=== PATIENT | female | born 1960 | race African-American/Black ===

== ENCOUNTER 2017-12-31 15:13 | Emergency (ER) | payer OTHER ==
[2017-12-31 15:17] VITALS: BP 122/82; PULSE 62; TEMP 98; BMI 16.9
[2017-12-31] MEDS ORDERED: SODIUM CHLORIDE 0.9% 500 ML INFUS.BAG IV ONE (16:26)
--- NOTE | 2017-12-31 16:35 | PDOC ---
History of Present Illness - General Chief Complaint: Seizure Stated Complaint: SEIZURE Time Seen by Provider: 12/31/17 16:01 History Source: Patient, Family Exam Limitations: No Limitations - History of Present Illness Initial Comments: 12/31/17 16:27 This is a 57 YOF with h/o seizure disorder on Keppra and Lamotrigine who p/w apparent seizure at 3 pm similar to her normal seizures, with apparent fall from bed, and now accompanied by a prolonged period of confusion since that time. Family notes that they heard a thud in her room, came to check on her three minutes later and found her laying on her back beside her bed with snoring respirations, and helped her up to her bed where she continued to sleep and snore for another several minutes before awakening and looking around, asking what had happened. She has been postictal for more than an hour at the time of my exam, which is longer than her normal time returning to baseline. The patient notes recent sore throat and cough, and just returned from a medically uneventful trip to [place] two days ago. She denies f/c/n/v/d/c, n/t/w , dizziness/lightheadedness, SOB, chest pain, abdominal pain, vision changes, headache, neck pain, or other symptoms. Her neurologist is Dr. James and her PCP is Dr. Bergman. Past History - Past Medical History Allergies/Adverse Reactions: Allergies Allergy/AdvReac Type Severity Reaction Status Date / Time Shellfish Allergy Intermediate Verified 12/31/17 15:17 Home Medications: Ambulatory Orders levETIRAcetam [Keppra -] 1,500 mg PO BID #0 tablet 10/01/11 Anemia: No Asthma: No Cancer: No Cardiac Disorders: No CVA: No COPD: No CHF: No Dementia: No Diabetes: No GI Disorders: No Disorders: No HTN: No Hypercholesterolemia: No Liver Disease: No Seizures: Yes Thyroid Disease: No - Surgical History Abdominal Surgery: No Appendectomy: No Cardiac Surgery: No Cholecystectomy: No Lung Surgery: No Neurologic Surgery: No Orthopedic Surgery: No - Suicide/Smoking/Psychosocial Hx Smoking History: Never smoked Have you smoked in the past 12 months: No Hx Alcohol Use: No Drug/Substance Use Hx: No Hx Substance Use Treatment: No Review of Systems - Review of Systems Able to Perform ROS?: Yes Constitutional: No: Chills, Fever, Unexplained wgt Loss HEENTM: No: Nose Congestion, Throat Pain Respiratory: No: Cough, Shortness of Breath Cardiac (ROS): No: Chest Pain, Palpitations ABD/GI: No: Constipated, Diarrhea, Nausea, Vomiting : No: Burning, Dysuria Musculoskeletal: No: Back Pain, Neck Pain Integumentary: No: Bruising, Rash Neurological: Yes: Seizure, Other (confusion). No: Headache, Numbness, Tingling , Weakness, Dizziness Endocrine: No: Unexplained Weight Gain, Unexplained Weight Loss *Physical Exam - Vital Signs Last Vital Signs Temp Pulse Resp BP Pulse Ox 98 F 62 18 122/82 99 12/31/17 15:14 12/31/17 15:14 12/31/17 15:14 12/31/17 15:14 12/31/17 15:14 - Physical Exam General Appearance: Yes: Nourished, Appropriately Dressed, Other (nontoxic and well appearing but a bit [id number], some speech latency, however a/ox4, appears comfortable). No: Apparent Distress HEENT: positive: EOMI, LUIZ, Normal Voice, Hearing Grossly Normal, Other (no scalp contusion, no cephalohematoma, no scalp laceration, no raccoon eyes, no barclay sign, no hemotympanum, no CSF rhinorrhea/otorrhea). negative: Scleral Icterus (R), Scleral Icterus (L), Nasal Congestion Neck: positive: Trachea midline, Supple. negative: Tender, Rigid Respiratory/Chest: positive: Lungs Clear, Normal Breath Sounds. negative: Respiratory Distress, Crackles, Rhonchi, Stridor, Wheezing Cardiovascular: positive: Regular Rhythm, Regular Rate, S1, S2. negative: Edema , JVD, Murmur Gastrointestinal/Abdominal: positive: Normal Bowel Sounds, Flat, Soft. negative : Tender, Organomegaly, Pulsatile Mass, Guarding Musculoskeletal: positive: Normal Inspection, Other (pelvis stable). negative: Decreased Range of Motion, Vertebral Tenderness Extremity: positive: Normal Capillary Refill, Normal Inspection, Normal Range of Motion. negative: Tender, Cyanosis Integumentary: positive: Normal Color, Dry, Warm. 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 negative: EOM Palsy, Facial Droop, Numbness, Sensory Deficit, Disoriented Heart Score/ECG Review #1 Sinus bradycardia, rate 53, normal axis and intervals, no ST-T changes ED Treatment Course - LABORATORY CBC & Chemistry Diagram: 12/31/17 17:35 12/31/17 17:35 - RADIOLOGY Radiology Studies Ordered: Category Date Time Status HEAD CT WITHOUT CONTRAST [CT] Stat CT Scan 12/31/17 16:22 Ordered CHEST PA & LAT [RAD] Stat Radiology 12/31/17 16:22 Ordered Medical Decision Making - Medical Decision Making Adult female Pt p/w apparent seizure. Initial Vital Signs Temp Pulse Resp BP Pulse Ox 98 F 62 18 122/82 99 12/31/17 15:14 12/31/17 15:14 12/31/17 15:14 12/31/17 15:14 12/31/17 15:14 Exam: As noted in Physical Exam section. DDX IBNLT: seizure (myoclonic, tonic-clonic/grand mal, atonic, absence/petit mal ) vs. syncope, status epilepticus (sz lasting 5-10 minutes, or repeated sz without regaining consciousness inbetween), VS abnormalities (e.g. fever), structural (e.g. epilepsy, CVA/TIA), infectious (e.g. UTI, PNA, meningitis), trauma, toxic-metabolic (e.g. medications, medication withdrawal, street drugs, street drug withdrawal, EtOH, EtOH withdrawal, electrolytes, thyroid), brain lesion (e.g. tumor), stroke, TTP (HUS with AMS, fever, poss seizure), idiopathic , psychiatric (e.g. pseudoseizure), eclampsia, etc. W/U ordered: CBCD CMP Mg Phos UA UCx Troponin Keppra and Lemotrigine levels, EKG CXR Head CT TX ordered: IVF EKG: Reviewed; results as noted in ECG Review section. CXR: Nothing acute Head CT: Nothing acute Laboratory Tests 12/31/17 12/31/17 12/31/17 17:35 17:35 17:35 WBC 12.4 H RBC 4.41 Hgb 11.2 Hct 34.7 MCV 78.6 L MCH 25.4 L MCHC 32.3 RDW 14.6 Plt Count 280 D MPV 8.3 D Absolute Neuts (auto) 10.6 H Neutrophils % 86.1 H D Lymphocytes % 8.2 D Monocytes % 4.4 Eosinophils % 0.7 D Basophils % 0.6 Nucleated RBC % 0 PT with INR 12.20 INR 1.08 VBG pH POC VBG pCO2 POC VBG pO2 Mixed VBG HCO3 Sodium 142 Potassium 4.3 Chloride 105 Carbon Dioxide 27 Anion Gap 10 BUN 13 Creatinine 1.3 H Creat Clearance w eGFR 42.22 Random Glucose 90 Calcium 8.7 Phosphorus 3.3 Magnesium 2.3 Total Bilirubin 0.1 L AST 20 ALT 32 Alkaline Phosphatase 107 Troponin I Total Protein 7.3 Albumin 3.5 Urine Color Urine Appearance Urine pH Ur Specific [place] Urine Protein Urine Glucose (UA) Urine Ketones Urine Blood Urine Nitrite Urine Bilirubin Urine Urobilinogen Ur Leukocyte Esterase Urine WBC (Auto) Urine RBC (Auto) Ur Epithelial Cells Urine Mucus 12/31/17 12/31/17 12/31/17 17:35 17:35 18:10 WBC RBC Hgb Hct MCV MCH MCHC RDW Plt Count MPV Absolute Neuts (auto) Neutrophils % Lymphocytes % Monocytes % Eosinophils % Basophils % Nucleated RBC % PT with INR INR VBG pH 7.37 POC VBG pCO2 51.7 POC VBG pO2 24.4 L Mixed VBG HCO3 28.9 H Sodium Potassium Chloride Carbon Dioxide Anion Gap BUN Creatinine Creat Clearance w eGFR Random Glucose Calcium Phosphorus Magnesium Total Bilirubin AST ALT Alkaline Phosphatase Troponin I < 0.02 Total Protein Albumin Urine Color Ltyellow Urine Appearance Clear Urine pH 7.0 D Ur Specific [place] 1.014 Urine Protein Negative Urine Glucose (UA) Negative Urine Ketones Negative Urine Blood 1+ H Urine Nitrite Negative Urine Bilirubin Negative Urine Urobilinogen Negative Ur Leukocyte Esterase Trace Urine WBC (Auto) 7 Urine RBC (Auto) 3 Ur Epithelial Cells Rare Urine Mucus Rare Cr. 1.3 as drawn prior to any medications, and now patient has gotten 1000cc IVF already. 12/31/17 19:26 I spoke with patient's neurologist Dr. Jaems who recommends prophylactic 500 mg Keppra in case subtherapeutic. Asks that she call his office on Tuesday and he will see her in clinic this Tuesday. Keppra dose is given and epileptic medication levels sent to lab (send-out takes days to result). Reassessment: Patient feels improved, confusion resolved, family states now at baseline. Neuro exam normal, normal gait. DISCHARGE The Pt has gotten significant relief of symptoms with ED medications. Workup is not concerning for emergency-level pathology at this time. The Pt is appropriate for discharge with close outpatient follow up. They are comfortable with this plan and will follow up with their PCP in 1-3 days. Specific return precautions are discussed and they will come back to the ER if necessary. *DC/Admit/Observation/Transfer Diagnosis at time of Disposition: Seizure - Discharge Dispostion Disposition: HOME Condition at time of disposition: Stable Decision to Admit order: No - Referrals Referrals: Kimberly Bergman [Primary Care Provider] - Sharla Jones MD [Staff Physician] - - Patient Instructions Printed Discharge Instructions: DI for Seizure Disorder -- Adult Additional Instructions: You were seen in the ER for a seizure. We did an exam, an electrocardiogram, labs, a chest x-ray, and a head CT. We talked with Dr. Jones who recommended that we give you an extra dose of Keppra, so we did here in the ER. After our assessment, we do not believe you are having a medical emergency at this time, and we believe you are safe to go home. Please call Dr. Jones's office on Tuesday and make an appointment for Tuesday (he is expecting you). Take your seizure medications at the same time every day, and do not miss any doses ( try setting a daily alarm on your phone to remind you). If you have any new or worsening symptoms, please come back to the ER at any time (24 hours a day). If you are having severe or life threatening symptoms, or symptoms that make it unsafe to drive or have someone drive you, please call 911. - Post Discharge Activity
--- NOTE | 2017-12-31 16:38 | PDOC ---
Attending Attestation - Resident Resident Name: Delmy Farr - ED Attending Attestation I have performed the following: I have examined & evaluated the patient, The case was reviewed & discussed with the resident, I agree w/resident's findings & plan, Exceptions are as noted - HPI HPI: 12/31/17 16:35 57 yo F with h/o seizure disorder here with c/o seizure. was found on floor by bed by her family. heard thud, found on floor next to the bed. time lapse between thud and eval by family short 3 min. was post ictal on evaluation. snoring. was confused and sleep for around an hour, now at baseline per family. no h/o f/c did have recent cough sore throat. viral syndrome. no focal weakness , initially concerns for change to speech. seems to be back at baseline now on my evaluation. 12/31/17 16:59 12/31/17 17:06 - Physicial Exam PE: 12/31/17 17:06 awake alert head atraumatic. lungs ctab. heart rrr no mrg. abd soft nt nd. ext wwp. 5/5 all four ext for strength. speech clear, aler oriented x 3 - Medical Decision Making 12/31/17 17:06 normal neuro exam strength 5/5. speech clear, cn intact. differential breakthrough siezure, electrolyte abnormality, infection such as uti or pna. due to head trauma found on floor ad initially prolonged postictal period. will ct head. reassess 12/31/17 21:[address] head unremarkable. now at baseline. given dc home. d /w dr bay, who will see pt next week. Heart Score/ECG Review #1 General ECG Interpretation: Normal Rate (53), Normal Intervals, No acute ischemic changes Compared to previous ECG there are: Other (sinus bradycardial.) - ECG Intrepretation Rhythm: Regular Rhythm - ECG Impressions Normal ECG: Yes Ischemic Changes: No
[2017-12-31 17:45] LABS: VENOUS PC02 51.7 mmHg (38-52); VENOUS PH 7.37 (7.32-7.42); VENOUS PO2 24.4 mmHg (28-48)
[2017-12-31 17:52] LABS: BASO % 0.6 % (0-2.0); EOS % 0.7 % (0-4.5); HEMATOCRIT 34.7 % (32.4-45.2); HEMOGLOBIN 11.2 GM/dL (10.7-15.3); LYMPH % 8.2 % (8-40); MCH 25.4 pg (25.7-33.7); MCHC 32.3 g/dl (32.0-36.0); MEAN CELL VOLUME 78.6 fl (80-96); MEAN PLT VOLUME 8.3 fl (7.5-11.1); MONO % 4.4 % (3.8-10.2); NEUT % 86.1 % (42.8-82.8); PLATELET COUNT 280 K/MM3 (134-434); RBC 4.41 M/mm3 (3.60-5.2); RDW 14.6 % (11.6-15.6); WHITE BLOOD COUNT 12.4 K/mm3 (4.0-10.0)
[2017-12-31 18:05] LABS: INR 1.08 (0.83-1.09); PROTHROMBIN TIME (PATIENT) 12.2 SEC (9.7-13.0)
[2017-12-31 18:26] LABS: URINE APPEARANCE CLEAR; URINE BILIRUBIN NEGATIVE (<2.0 mg/dL); URINE COLOR LTYELLOW; URINE GLUCOSE (UA) NEGATIVE (NEGATIVE); URINE KETONE NEGATIVE (NEGATIVE); URINE LEUK ESTERASE TRACE (NEGATIVE); URINE NITRITE NEGATIVE (NEGATIVE); URINE PROTEIN NEGATIVE (NEGATIVE); URINE UROBILINOGEN NEGATIVE mg/dL (0.2-1.0)
[2017-12-31 18:29] LABS: EPI CELLS RARE /HPF (FEW); URINE MUCUS RARE
[2017-12-31 18:38] LABS: ALBUMIN 3.5 g/dl (3.4-5.0); ANION GAP 10 MMOL/L (8-16); BILIRUBIN,TOTAL 0.1 mg/dL (0.2-1.0); BLOOD UREA NITROGEN 13 mg/dL (7-18); CALCIUM 8.7 mg/dL (8.5-10.1); CHLORIDE 105 mmol/L (98-107); CO2 27 mmol/L (21-32); CREATININE 1.3 mg/dL (0.55-1.02); GLUCOSE,RANDOM 90 mg/dL (74-106); MAGNESIUM 2.3 mg/dL (1.8-2.4); PHOSPHOROUS 3.3 mg/dL (2.5-4.9); POTASSIUM 4.3 mmol/L (3.5-5.1); SGOT/AST 20 U/L (15-37); SGPT/ALT 32 U/L (12-78); SODIUM 142 mmol/L (136-145); TOT PROT 7.3 g/dl (6.4-8.2)
[2017-12-31 18:39] LABS: ALK PHOS 107 U/L (45-117)
[2017-12-31] MEDS ORDERED: SODIUM CHLORIDE 0.9% 1000 ML INFUS.BAG IV ONE (18:44)
[2017-12-31] MEDS ORDERED: levETIRAcetam 500 MG TABLET (FP) PO ONE ×2 (19:21→20:19)
--- NOTE | 2018-01-02 13:50 | EKG ---
Test Reason : Blood Pressure : / mmHG Vent. Rate : 053 BPM Atrial Rate : 053 BPM P-R Int : 170 ms QRS Dur : 078 ms QT Int : 392 ms P-R-T Axes : 067 075 056 degrees QTc Int : 367 ms POOR DATA QUALITY, INTERPRETATION MAY BE ADVERSELY AFFECTED SINUS BRADYCARDIA CANNOT RULE OUT ANTERIOR INFARCT , AGE UNDETERMINED ABNORMAL ECG WHEN COMPARED WITH ECG OF 30-OCT-2015 09:41, NO SIGNIFICANT CHANGE WAS FOUND Confirmed by FLAVIA SAUNDERS MD ([id number]) on 01/02/2018 1:50:03 PM Referred By: Confirmed By:FLAVIA SAUNDERS MD
== END 2017-12-31 20:45 | disposition home or self-care (01) ==
LOC: JER 15:13
PROC: 3E0337Z Introduction of Electrolytic and Water Balance Substance into Peripheral Vein, Percutaneous Approach (ICD-10-PCS; principal; 2017-12-31)
DX: G40.909 Epilepsy, unspecified, not intractable, without status epilepticus (principal)
CPT/HCPCS: 36415; 70450-TC; 71046-TC-FY; 80053; 80175; 81003; 81015; 82803; 83735; 84100; 84484; 85025; 85610; 87086; 93005; 93010; 99284-25; J7030